=== PATIENT | male | born 1965 | race African-American/Black ===

== ENCOUNTER 2018-02-12 12:00 | Observation (INO) | payer BC ==
[~2018-02-12] VITALS: Ht 167.6 cm; Wt 68.0 kg
[2018-02-12] VITALS (9 sets, daily range): BP systolic 70–117; BP diastolic 34–83; PULSE 61–76; RESP 14–18; TEMP 97.6–99.3; O2SAT 95–100
--- NOTE | 2018-02-12 12:28 | PD ---
HPI Chief Complaint: Syncope/Near-Syncope Time Seen by Provider: 12:18 Travel History International Travel<30 days: No Contact w/Intl Traveler<30days: No Traveled to known affect area: No History of Present Illness HPI Patient is a 52 year old male presents to the ER for evaluation of abdominal pain, syncopal episode prior to arrival and diaphoresis. Per patient's he has been recovering from heroin and is visiting from out of town. She is unsure when he last used as he is not always honest with her. He states he generalized and severe abdominal pain, diarrhea and nausea. He did have one large emesis nb/nb in ED. No fevers, no chest pain, no sob. Symptoms severe, abdomen, context and associated s/s as above. [facility] Past Medical History Medical History: Denies Significant Hx Past Surgical History Surgical History: No Previous Surgery Social History Alcohol Use: Yes Tobacco Use: Yes Substance Use: Yes Allergies-Medications (Allergen,Severity, Reaction): Coded Allergies: No Known Allergies (Unverified , 02/12/18) Reported Meds & Prescriptions Reported Meds & Active Scripts Active No Active Prescriptions or Reported Medications Review of Systems Except as stated in HPI: all other systems reviewed are Neg Physical Exam Narrative GENERAL: WD/WN in moderate discomfort, rocking back and forth holding abdomen, diaphoretic. SKIN: Warm and diaphoretic. HEAD: Atraumatic. Normocephalic. EYES: Pupils equal and round. No scleral icterus. No injection or drainage. ENT: No nasal bleeding or discharge. Mucous membranes pink and moist. NECK: Trachea midline. No JVD. CARDIOVASCULAR: Regular rate and rhythm. RESPIRATORY: No accessory muscle use. Clear to auscultation. Breath sounds equal bilaterally. GASTROINTESTINAL: Abdomen soft,diffusely tender in all four quadrants. No rebound, no percussive tenderness., nondistended. Hepatic and splenic margins not palpable. MUSCULOSKELETAL: Extremities without clubbing, cyanosis, or edema. No obvious deformities. NEUROLOGICAL: Awake and alert. No obvious cranial nerve deficits. Motor grossly within normal limits. Five out of 5 muscle strength in the arms and legs. Normal speech. PSYCHIATRIC: Appropriate mood and affect; insight and judgment normal. Data Data Last Documented VS Vital Signs Date Time Temp Pulse Resp B/P (MAP) Pulse Ox O2 Delivery O2 Flow Rate FiO2 02/12/18 17:38 73 18 115/68 (84) 99 Nasal Cannula 2.00 02/12/18 12:09 97.6 Orders Orders Electrocardiogram (02/12/18 12:18) Ckmb (Isoenzyme) Profile (02/12/18 12:18) Complete Blood Count With Diff (02/12/18 12:18) Comprehensive Metabolic Panel (02/12/18 12:18) Magnesium (Mg) (02/12/18 12:18) Prothrombin Time / Inr (Pt) (02/12/18 12:18) Act Partial Throm Time (Ptt) (02/12/18 12:18) Troponin I (02/12/18 12:18) Chest, Single Ap (02/12/18 12:18) Ecg Monitoring (02/12/18 12:18) Iv Access Insert/Monitor (02/12/18 12:18) Oximetry (02/12/18 12:18) Oxygen Administration (02/12/18 12:18) Sodium Chlor 0.9% 1000 Ml Inj (Ns 1000 M (02/12/18 12:30) Sodium Chlor 0.9% 1000 Ml Inj (Ns 1000 M (02/12/18 12:30) CKMB (02/12/18 12:38) CKMB% (02/12/18 12:38) Ondansetron Odt (Zofran Odt) (02/12/18 15:00) Morphine Inj (Morphine Inj) (02/12/18 15:00) Ct Abd/Pel W Iv Contrast(Rout) (02/12/18 ) Iohexol 350 Inj (Omnipaque 350 Inj) (02/12/18 16:00) Metronidazole (Flagyl) (02/12/18 17:30) Admit Order (Ed Use Only) (02/12/18 ) Labs Laboratory Tests Test 02/12/18 12:38 White Blood Count 16.3 TH/MM3 Red Blood Count 5.27 MIL/MM3 Hemoglobin 14.6 GM/DL Hematocrit 44.9 % Mean Corpuscular Volume 85.1 FL Mean Corpuscular Hemoglobin 27.7 PG Mean Corpuscular Hemoglobin Concent 32.6 % Red Cell Distribution Width 13.8 % Platelet Count 296 TH/MM3 Mean Platelet Volume 9.2 FL Neutrophils (%) (Auto) 78.7 % Lymphocytes (%) (Auto) 15.9 % Monocytes (%) (Auto) 4.7 % Eosinophils (%) (Auto) 0.4 % Basophils (%) (Auto) 0.3 % Neutrophils # (Auto) 12.8 TH/MM3 Lymphocytes # (Auto) 2.6 TH/MM3 Monocytes # (Auto) 0.8 TH/MM3 Eosinophils # (Auto) 0.1 TH/MM3 Basophils # (Auto) 0.1 TH/MM3 CBC Comment DIFF FINAL Differential Comment Prothrombin Time 10.6 SEC Prothromb Time International Ratio 1.0 RATIO Activated Partial Thromboplast Time 19.4 SEC Blood Urea Nitrogen 13 MG/DL Creatinine 1.24 MG/DL Random Glucose 164 MG/DL Total Protein 7.7 GM/DL Albumin 4.1 GM/DL Calcium Level 9.3 MG/DL Magnesium Level 2.1 MG/DL Alkaline Phosphatase 82 U/L Aspartate Amino Transf (AST/SGOT) 36 U/L Alanine Aminotransferase (ALT/SGPT) 20 U/L Total Bilirubin 1.0 MG/DL Sodium Level 142 MEQ/L Potassium Level 3.6 MEQ/L Chloride Level 108 MEQ/L Carbon Dioxide Level 18.4 MEQ/L Anion Gap 16 MEQ/L Estimat Glomerular Filtration Rate 74 ML/MIN Total Creatine Kinase 1139 U/L Creatine Kinase MB 3.5 NG/ML Creatine Kinase MB % 0.3 % Troponin I LESS THAN 0.02 NG/ML MDM Medical Decision Making Medical Screen Exam Complete: Yes Emergency Medical Condition: Yes Differential Diagnosis Heroin withdrawal, syncope, neurogenic syncope, vasovagal syncope seems more likely, cardiac syncope, colitis dehydration, sepsis. Narrative Course Roomed in ER, initially hypotensive, responded to fluids and time. Last 24 hours Impressions Chest X-Ray 02/12/18 1218 Signed Impressions: CONCLUSION: No acute cardiopulmonary disease Abdomen/Pelvis CT 02/12/18 0000 Signed Impressions: CONCLUSION: Mural thickening of large bowel, especially distally in the sigmoid region most characteristic of a mild colitis. Labs do show elevated wbc. Discussed with patient who is feeling much better, obs versus discharge. He requests obs which i think is reasonable. D/W Dr. Lima. Diagnosis Primary Impression: Colitis Additional Impression: Syncope Admitting Information Admitting Physician Requests: Observation Med/Other Pt SpecificInfo: Prescription(s) given Scripts No Active Prescriptions or Reported Meds Disposition: DISCHARGE HOME Condition: Stable Gatito Jimenez MD Feb 12, 2018 12:28
[2018-02-12] MEDS ORDERED: SODIUM CHLOR 0.9% 1000 ML INJ 1,000 ML IV ONE ×2 (12:30)
--- NOTE | 2018-02-12 13:00 | RADRPT ---
EXAM DATE: 02/12/2018 12:41 PM EDT AGE/SEX: 52 years / Male INDICATIONS: Chest pain. CLINICAL DATA: This is the patient's initial encounter. Patient reports that signs and symptoms have been present for 1 day and indicates a pain score of 10/10. MEDICAL/SURGICAL HISTORY: None. None. COMPARISON: No prior exams available for comparison. FINDINGS: A single AP view of the chest demonstrates the lungs to be symmetrically aerated without evidence of mass, infiltrate or effusion. The cardiomediastinal contours are unremarkable. Osseous structures a re intact. CONCLUSION: No acute cardiopulmonary disease Electronically signed by: Ryan Laurent MD 02/12/2018 12:58 PM EDT
[2018-02-12 13:11] LABS: AUTOMATED NEUTROPHIL # 12.8 TH/MM3 (1.8-7.7); BASOPHIL # 0.1 TH/MM3 (0-0.2); BASOPHIL % 0.3 % (0.0-2.0); EOSINOPHIL # 0.1 TH/MM3 (0-0.4); EOSINOPHIL % 0.4 % (0.0-4.0); HEMATOCRIT 44.9 % (39.0-51.0); HEMOGLOBIN 14.6 GM/DL (13.0-17.0); LYMPH % 15.9 % (9.0-44.0); LYMPHOCYTE # 2.6 TH/MM3 (1.0-4.8); MEAN CELL VOLUME 85.1 FL (80.0-100.0); MEAN CORPUSCULAR HEMOGLOBIN 27.7 PG (27.0-34.0); MEAN CORPUSCULAR HGB CONC 32.6 % (32.0-36.0); MEAN PLATELET VOLUME 9.2 FL (7.0-11.0); MONO % 4.7 % (0.0-8.0); MONOCYTE # 0.8 TH/MM3 (0-0.9); NEUT % 78.7 % (16.0-70.0); PLATELET COUNT 296 TH/MM3 (150-450); RED BLOOD COUNT 5.27 MIL/MM3 (4.50-5.90); RED CELL DISTRIBUTION WIDTH 13.8 % (11.6-17.2); WHITE BLOOD COUNT 16.3 TH/MM3 (4.0-11.0)
[2018-02-12 13:29] LABS: ALBUMIN 4.1 GM/DL (3.4-5.0); ALT (GPT) 20 U/L (12-78); AST (GOT) 36 U/L (15-37); BICARBONATE 18.4 MEQ/L (21.0-32.0); BLOOD UREA NITROGEN 13 MG/DL (7-18); CALCIUM 9.3 MG/DL (8.5-10.1); CHLORIDE 108 MEQ/L (98-107); CREATININE 1.24 MG/DL (0.60-1.30); GLOMERULAR FILTRATION RATE 74 ML/MIN (>89); GLUCOSE,RANDOM 164 MG/DL (74-106); MAGNESIUM 2.1 MG/DL (1.5-2.5); SODIUM (NA) 142 MEQ/L (136-145)
[2018-02-12 13:33] LABS: PROTHROMBIN TIME - PATIENT 10.6 SEC (9.8-11.6)
[2018-02-12 13:43] LABS: ALKALINE PHOSPHATASE 82 U/L (45-117); TOTAL PROTEIN 7.7 GM/DL (6.4-8.2); TROPONIN I LESS THAN 0.02 NG/ML (0.02-0.05)
[2018-02-12] MEDS ORDERED: MORPHINE SULFATE 8 MG/ML INJ IV PUSH ONE (15:00)
[2018-02-12] MEDS ORDERED: ONDANSETRON ODT 4 MG TAB PO ONE (15:00)
[2018-02-12] MEDS ORDERED: IOHEXOL 350 MG/ML 10 ML VIAL (for RAD DIAG) IVCONTRAST ONE (16:00)
--- NOTE | 2018-02-12 16:29 | RADRPT ---
EXAM DATE: 02/12/2018 4:11 PM EDT AGE/SEX: 52 years / Male INDICATIONS: Diffuse abdominal pain today. CLINICAL DATA: This is the patient's initial encounter. Patient reports that signs and symptoms have been present for 1 day and indicates a pain score of 7/10. MEDICAL/SURGICAL HISTORY: None. None. ORAL CONTRAST: No oral contrast ingested. RADIATION DOSE: 6.64 CTDI (mGy) COMPARISON: No prior exams available for comparison. TECHNIQUE: Multiple contiguous axial images were obtained through the abdomen and pelvis following b olus infusion of 82 ml Omnipaque 350 (iohexol) nonionic water-soluble contrast as a single exam dos e. No oral contrast ingested. Using automated exposure control and adjustment of the mA and/or kV ac cording to patient size, radiation dose was kept as low as reasonably achievable to obtain optimal di agnostic quality images. DICOM format image data is available electronically for review and comparis on. FINDINGS: There is a 14 mm low-attenuation lesion in the right lobe of the abdomen and multiple additional subc entimeter low-attenuation lesion numbering at least 7. These are probably small cysts. Spleen, adrena ls, kidneys and pancreas are unremarkable. No calcified gallstones or biliary ductal dilatation.. There is mural thickening of the large bowel predominantly in the left colon and in the sigmoid regio n most characteristic of a mild colitis. No acute bony abnormalities. Minimal anterolisthesis of L4 on L5. CONCLUSION: Mural thickening of large bowel, especially distally in the sigmoid region most characteristic of a m ild colitis. Electronically signed by: Blake Barlow MD 02/12/2018 4:28 PM EDT
[2018-02-12] MEDS ORDERED: metroNIDAZOLE 500 MG TAB PO ONE (17:30)
[2018-02-12] MEDS ORDERED: ACETAMINOPHEN/HYDROcodone 325 MG/5 MG TAB PO PRN (18:15)
[2018-02-12] MEDS ORDERED: SODIUM CHLORIDE 0.9% FLUSH 10 ML FLUSH IV FLUSH PRN (18:15)
[2018-02-12] MEDS ORDERED: NALOXONE HCL 0.4 MG/ML AMP IV PUSH PRN (18:15)
[2018-02-12] MEDS ORDERED: MORPHINE SULFATE 4 MG/ML INJ IV PUSH PRN (18:15)
[2018-02-12] MEDS ORDERED: ONDANSETRON ODT 4 MG TAB PO PRN (18:15)
[2018-02-12] MEDS ORDERED: ACETAMINOPHEN 325 MG TAB PO PRN ×2 (18:15)
--- NOTE | 2018-02-12 19:01 | HHI.HP ---
[facility] Unknown Admission Diagnosis Syncope, Colitis, Heroin Withdrawal. Diagnoses: Chief Complaint: Syncope Travel History International Travel<30 Days: No Contact w/Intl Traveler <30 Da: No Traveled to Known Affected Are: No History of Present Illness This is a 52-year-old male who presented to the emergency department after a syncopal episode. Patient was seen [facility] when he developed abdominal pain and then passed out for a brief period of time. States he slid down and landed on his knees denies injuries. No chest pain, shortness of breath, palpitations, dizziness and neck pain. He reports of progressive intermittent sharp left lower quadrant pain associated with diarrhea since yesterday. Denies recent travel, sick contacts, well water and seafood ingestion. In the emergency department, he was hypotensive systolic in the 80s and received 2 L fluid bolus. Abdominal CT shows mural thickening of the large bowel especially distally in the sigmoid region characteristic of mild colitis. Patient denies recent antibiotic use. No history of C. difficile. All other systems reviewed negative Review of Systems Except as stated in HPI: all other systems reviewed are Neg Past Family Social History Past Medical History Denies any medical conditions. States he is trying to quit heroin last used 3 days ago Past Surgical History Denies Reported Medications None Allergies: Coded Allergies: No Known Allergies (Unverified , 02/12/18) Family History Noncontributory Social History Smoke A pack per day. Does not drink Physical Exam Vital Signs Vital Signs Date Time Temp Pulse Resp B/P (MAP) Pulse Ox O2 Delivery O2 Flow Rate FiO2 02/12/18 17:38 73 18 115/68 (84) 99 Nasal Cannula 2.00 02/12/18 14:35 76 18 117/83 (94) 100 Room Air 02/12/18 13:28 74 18 117/65 (82) 100 Room Air 02/12/18 12:32 36 98 Nasal Cannula 2.00 02/12/18 12:32 68 18 109/55 (73) 100 Nasal Cannula 2.00 02/12/18 12:31 100 Nasal Cannula 2.00 02/12/18 12:31 18 100 Nasal Cannula 2.00 02/12/18 12:09 97.6 73 14 70/34 (46) 97 80/40 (53) Physical Exam GENERAL: This is a well-nourished, well-developed patient, in no apparent distress. Looks dehydrated SKIN: No rashes, ecchymoses or lesions. Cool and dry. HEAD: Atraumatic. Normocephalic. No temporal or scalp tenderness. EYES: Pupils equal round and reactive. Extraocular motions intact. No scleral icterus. No injection or drainage. ENT: Nose without bleeding, purulent drainage or septal hematoma. Throat without erythema, tonsillar hypertrophy or exudate. Uvula midline. Airway patent. NECK: Trachea midline. No JVD or lymphadenopathy. Supple, nontender, no meningeal signs. CARDIOVASCULAR: Regular rate and rhythm without murmurs, gallops, or rubs. RESPIRATORY: Clear to auscultation. Breath sounds equal bilaterally. No wheezes , rales, or rhonchi. GASTROINTESTINAL: Abdomen soft, non-tender, nondistended. No guarding. MUSCULOSKELETAL: Extremities without clubbing, cyanosis, or edema. No joint tenderness, effusion, or edema noted. No calf tenderness. Negative Homans sign bilaterally. NEUROLOGICAL: Awake and alert. Cranial nerves II through XII intact. Motor and sensory grossly within normal limits. Five out of 5 muscle strength in all muscle groups. Normal speech. Laboratory Laboratory Tests Test 02/12/18 12:38 White Blood Count 16.3 Red Blood Count 5.27 Hemoglobin 14.6 Hematocrit 44.9 Mean Corpuscular Volume 85.1 Mean Corpuscular Hemoglobin 27.7 Mean Corpuscular Hemoglobin Concent 32.6 Red Cell Distribution Width 13.8 Platelet Count 296 Mean Platelet Volume 9.2 Neutrophils (%) (Auto) 78.7 Lymphocytes (%) (Auto) 15.9 Monocytes (%) (Auto) 4.7 Eosinophils (%) (Auto) 0.4 Basophils (%) (Auto) 0.3 Neutrophils # (Auto) 12.8 Lymphocytes # (Auto) 2.6 Monocytes # (Auto) 0.8 Eosinophils # (Auto) 0.1 Basophils # (Auto) 0.1 CBC Comment DIFF FINAL Differential Comment Prothrombin Time 10.6 Prothromb Time International Ratio 1.0 Activated Partial Thromboplast Time 19.4 Blood Urea Nitrogen 13 Creatinine 1.24 Random Glucose 164 Total Protein 7.7 Albumin 4.1 Calcium Level 9.3 Magnesium Level 2.1 Alkaline Phosphatase 82 Aspartate Amino Transf (AST/SGOT) 36 Alanine Aminotransferase (ALT/SGPT) 20 Total Bilirubin 1.0 Sodium Level 142 Potassium Level 3.6 Chloride Level 108 Carbon Dioxide Level 18.4 Anion Gap 16 Estimat Glomerular Filtration Rate 74 Total Creatine Kinase 1139 Creatine Kinase MB 3.5 Creatine Kinase MB % 0.3 Troponin I LESS THAN 0.02 Result Diagram: 02/12/18 1238 02/12/18 1238 Imaging Last Impressions Chest X-Ray 02/12/18 1218 Signed Impressions: CONCLUSION: No acute cardiopulmonary disease Abdomen/Pelvis CT 02/12/18 0000 Signed Impressions: CONCLUSION: Mural thickening of large bowel, especially distally in the sigmoid region most characteristic of a mild colitis. Caprini VTE Risk Assessment Caprini VTE Risk Assessment: No/Low Risk (score <= 1) Caprini Risk Assessment Model Point Value = 1 Point Value = 2 Point Value = 3 Point Value = 5 Age 41-60 Minor surgery BMI > 25 kg/m2 Swollen legs Varicose veins or History of unexplained or recurrent spontaneous Oral contraceptives or hormone replacement Sepsis (< 1 month) Serious lung disease, including pneumonia (< 1 month) Abnormal pulmonary function Acute myocardial infarction Congestive heart failure (< 1 month) History of inflammatory bowel disease Medical patient at bed rest Age 61-74 Arthroscopic surgery Major open surgery (> 45 min) Laparoscopic surgery (> 45 min) Malignancy Confined to bed (> 72 hours) Immobilizing plaster cast Central venous access Age >= 75 History of VTE Family history of VTE Factor V Leiden Prothrombin [id number] Lupus anticoagulant Anticardiolipin antibodies Elevated serum homocysteine Heparin-induced thrombocytopenia Other congenital or acquired thrombophilia Stroke (< 1 month) Elective arthroplasty Hip, pelvis, or leg fracture Acute spinal cord injury (< 1 month) Prophylaxis Regimen Total Risk Factor Score Risk Level Prophylaxis Regimen 0-1 Low Early ambulation 2 Moderate Order ONE of the following: *Sequential Compression Device (SCD) *Heparin 5000 units SQ BID 3-4 Higher Order ONE of the following medications: *Heparin 5000 units SQ TID *Enoxaparin/Lovenox 40 mg SQ daily (WT < 150 kg, CrCl > 30 mL/min) *Enoxaparin/Lovenox 30 mg SQ daily (WT < 150 kg, CrCl > 10-29 mL/min) *Enoxaparin/Lovenox 30 mg SQ BID (WT < 150 kg, CrCl > 30 mL/min) AND/OR *Sequential Compression Device (SCD) 5 or more Highest Order ONE of the following medications: *Heparin 5000 units SQ TID (Preferred with Epidurals) *Enoxaparin/Lovenox 40 mg SQ daily (WT < 150 kg, CrCl > 30 mL/min) *Enoxaparin/Lovenox 30 mg SQ daily (WT < 150 kg, CrCl > 10-29 mL/min) *Enoxaparin/Lovenox 30 mg SQ BID (WT < 150 kg, CrCl > 30 mL/min) AND *Sequential Compression Device (SCD) Assessment and Plan Assessment and Plan This is a 52-year-old male who presented to the emergency department after a syncopal episode. Patient was seen [facility] when he developed abdominal pain and then passed out for a brief period of time. States he slid down and landed on his knees denies injuries. No chest pain, shortness of breath, palpitations, dizziness and neck pain. He reports of progressive intermittent sharp left lower quadrant pain associated with diarrhea for 2 days. Denies recent travel, sick contacts, well water and seafood ingestion. In the emergency department, he was hypotensive systolic in the 80s and received 2 L fluid bolus. Abdominal CT shows mural thickening of the large bowel especially distally in the sigmoid region characteristic of mild colitis. Patient denies recent antibiotic use. No history of C. difficile. Acute colitis. Continue IV hydration, IV Flagyl and pain management with Lortab and IV morphine. Counseled regarding narcotics. Obtain C. difficile and stool culture Acidosis secondary to dehydration from above. Patient was hypotensive with systolic in the 80s received 2 L fluid bolus in the ED. He is hemodynamically improved. Continue IV hydration Syncope secondary to above. Nonfocal. Neurochecks Rhabdomyolysis, mild. Continue IV hydration. Repeat CK in the morning Heroin abuse. Counseled DVt prophylaxis with SCD Discussed Condition With pt Jose Lima MD Feb 12, 2018 19:01
[2018-02-12] MEDS: SODIUM CHLORIDE 0.9% FLUSH 10 ML FLUSH IV FLUSH SCH (23:25)
[2018-02-12] MEDS: metroNIDAZOLE 500 MG INJ 100 ML IV SCH (23:25)
[2018-02-12] MEDS: SODIUM CHLOR 0.9% 1000 ML INJ 1,000 ML IV SCH (23:31)
[2018-02-13] MEDS: SODIUM CHLOR 0.9% 1000 ML INJ 1,000 ML IV SCH ×2 (03:19→14:03)
[2018-02-13 03:51] VITALS: BP 105/55; PULSE 73; RESP 16; TEMP 99.1; O2SAT 99
[2018-02-13] MEDS: metroNIDAZOLE 500 MG INJ 100 ML IV SCH ×2 (05:30→11:39)
[2018-02-13 06:16] VITALS: BP 114/59; PULSE 73; RESP 16; O2SAT 100
[2018-02-13] MEDS ORDERED: LORazepam 2 MG/ML VIAL IV PUSH PRN (06:30)
[2018-02-13 06:59] VITALS: O2SAT 100
[2018-02-13 07:30] VITALS: BP 91/56; PULSE 69; RESP 18; TEMP 99.2; O2SAT 97
[2018-02-13 08:01] LABS: AUTOMATED NEUTROPHIL # 13.1 TH/MM3 (1.8-7.7); BASOPHIL # 0.1 TH/MM3 (0-0.2); BASOPHIL % 0.4 % (0.0-2.0); EOSINOPHIL % 0.3 % (0.0-4.0); HEMATOCRIT 38.2 % (39.0-51.0); HEMOGLOBIN 12.5 GM/DL (13.0-17.0); LYMPHOCYTE # 1.6 TH/MM3 (1.0-4.8); MEAN CELL VOLUME 84.4 FL (80.0-100.0); MEAN CORPUSCULAR HEMOGLOBIN 27.5 PG (27.0-34.0); MEAN CORPUSCULAR HGB CONC 32.6 % (32.0-36.0); MEAN PLATELET VOLUME 9.4 FL (7.0-11.0); MONO % 5.8 % (0.0-8.0); MONOCYTE # 0.9 TH/MM3 (0-0.9); NEUT % 83.5 % (16.0-70.0); PLATELET COUNT 241 TH/MM3 (150-450); RED BLOOD COUNT 4.53 MIL/MM3 (4.50-5.90); RED CELL DISTRIBUTION WIDTH 13.6 % (11.6-17.2); WHITE BLOOD COUNT 15.7 TH/MM3 (4.0-11.0)
--- NOTE | 2018-02-13 08:06 | HHI.PR ---
Subjective Remarks Patient seen and examined for follow-up of colitis. He reports his abdominal pain has improved significantly but he is head still operator mostly in his left lower quadrant. He has had four episodes of nonbloody diarrhea so far today. Denies nausea or vomiting. Tolerating liquids. He reports he passed out in the parking lot prior to coming in because his abdominal pain was so severe. He denies ever passing out in the past. He denies chest pain, palpitations, or dizziness. He states he does not feel like he is withdrawing any longer. She admits to snorting heroin "all day every day" for the last 8 months but wants to be sober. He has not used in the last three days. He states he is gone to rehab in the past. He denies history of seizures or significant withdrawal symptoms. He has the support of his family. He lives with his and daughter and her traveling back to [place] and are scheduled to fly out first thing in the morning. The patient feels like he is ready to go. He states he has a primary care physician in [place] and was already in the works of setting up an appointment for colonoscopy. Objective Vital Signs Date Time Temp Pulse Resp B/P (MAP) Pulse Ox O2 Delivery O2 Flow Rate FiO2 02/13/18 07:30 99.2 69 18 91/56 (68) 97 02/13/18 06:59 100 Nasal Cannula 2.00 02/13/18 06:16 73 16 114/59 (77) 100 02/13/18 03:51 99.1 73 16 105/55 (72) 99 02/12/18 23:22 99.3 61 16 103/56 (72) 98 02/12/18 20:37 98.9 72 16 103/66 (78) 95 02/12/18 19:25 98 Nasal Cannula 2.00 02/12/18 19:18 02/12/18 17:38 73 18 115/68 (84) 99 Nasal Cannula 2.00 02/12/18 14:35 76 18 117/83 (94) 100 Room Air 02/12/18 13:28 74 18 117/65 (82) 100 Room Air 02/12/18 12:32 36 98 Nasal Cannula 2.00 02/12/18 12:32 68 18 109/55 (73) 100 Nasal Cannula 2.00 02/12/18 12:31 100 Nasal Cannula 2.00 02/12/18 12:31 18 100 Nasal Cannula 2.00 02/12/18 12:09 97.6 73 14 70/34 (46) 97 80/40 (53) I/O 02/12/18 02/12/18 02/12/18 02/13/18 02/13/18 02/13/18 07:00 15:00 23:00 07:00 15:00 23:00 Intake Total 2000 ml Balance 2000 ml Intake IV Total 2000 ml Result Diagram: 02/12/18 1238 02/12/18 1238 Objective Remarks GENERAL: WN, WD -[place] male resting in bed in NAD. Not tremulous or diaphoretic. SKIN: Warm and dry. HEENT: AT/NC. Pupils equal and round. MMM. NECK: Supple no tender LAD or JVD. HEART: RRR no m/r/g. LUNGS: CTAB without wheezes or crackles. ABDOMEN: +BS, soft, ND, mild diffuse TTP especially over LLQ. EXTREMITIES: No LE edema. NEURO: Awake and alert. Nonfocal. PSYCH: Appropriate mood and affect. A/P Problem List: (1) Colitis ICD Code: K52.9 - Noninfective gastroenteritis and colitis, unspecified Status: Acute (2) Syncope ICD Code: R55 - Syncope and collapse Status: Acute Assessment and Plan 52 YOAAM with history of heroin use admitted yesterday for abdominal pain, diarrhea, and syncope and found to have colitis. 1. Colitis - Pt with LLQ abdominal pain and diarrhea - Hypotensive on admission requiring fluid bolus - White count elevated at 16.3 - LFTs WNL - Elevated anion gap of 16, acidotic likely from bicarb loss in the diarrhea - Lactic acid WNL - C DIFF PCR negative - CT A/P showing mural thickening of the large bowel predominantly in the left colon in the sigmoid region most characteristic of a mild colitis - Started on IV Flagyl overnight - Add Cipro PO - IV hydration - Pain control 2. Syncope - Likely vasovagal secondary to severe abdominal pain - EKG showing borderline prolonged QTc for a male. Recheck EKG - Avoid QT prolonging agents - Troponin negative - Check 2D echo 3. Rhabdomyolysis - CK elevated - IV hydration - Repeat CK normal 4. Heroin abuse - Counseled on cessation - Does not appear to be withdrawing at this time but will monitor closely DVT prophylaxis: Discharge Planning Possibly tomorrow pending clinical improvement, ordering an echo today Devika Melgar MD Feb 13, 2018 08:06
[2018-02-13 08:23] LABS: BICARBONATE 20.7 MEQ/L (21.0-32.0); CALCIUM 8.3 MG/DL (8.5-10.1); CREATININE 0.84 MG/DL (0.60-1.30)
[2018-02-13] MEDS ORDERED: CIPROFLOXACIN 500 MG TAB PO SCH (09:00)
[2018-02-13] MEDS: LACTOBACILLUS ACIDOPHILUS TAB PO SCH ×2 (09:26→14:38)
[2018-02-13] MEDS: SODIUM CHLORIDE 0.9% FLUSH 10 ML FLUSH IV FLUSH SCH (09:27)
[2018-02-13 11:08] VITALS: BP 98/57; PULSE 68; RESP 18; TEMP 99.4; O2SAT 98
[2018-02-13] MEDS ORDERED: POTASSIUM CHLORIDE 20 MEQ CONTROLLED RELEASE TAB PO ONE (13:00)
--- NOTE | 2018-02-13 13:51 | EKG ---
Date Performed: 02/12/2018 Time Performed: 12:23:36 PTAGE: 52 years EKG: Sinus rhythm PROLONGED QT INTERVAL ABNORMAL ECG INTERPRETATION BASED ON A DEFAULT AGE OF 40 YEARS NO PREVIOUS TRACING DOCTOR: Williams Cuevas Interpretating Date/Time 02/13/2018 13:50:01
[2018-02-13 15:35] VITALS: BP 107/58; PULSE 65; RESP 18; TEMP 98.9; O2SAT 98
--- NOTE | 2018-02-14 23:19 | EKG ---
Date Performed: 02/13/2018 Time Performed: 16:02:36 PTAGE: 52 years EKG: Sinus rhythm NORMAL ECG PREVIOUS TRACING : 02/13/2018 15.53 Compared to previous tracing, QTc less prolonged DOCTOR: Bipin Quinteros Interpretating Date/Time 02/14/2018 23:19:22
== END 2018-02-13 16:57 | disposition left against medical advice (07) ==
LOC: NEPE 12:00 → NEDA 18:04 → NEPGCP 19:22
PROVIDERS: ADMIT Family Medicine; ATTEND Family Medicine
DX: R55 Syncope and collapse (principal); R10.9 Unspecified abdominal pain; K52.9 Noninfective gastroenteritis and colitis, unspecified; R61 Generalized hyperhidrosis; R11.0 Nausea; R11.10 Vomiting, unspecified; F17.210 Nicotine dependence, cigarettes, uncomplicated; I95.9 Hypotension, unspecified; D72.829 Elevated white blood cell count, unspecified; E87.2 Acidosis; E86.0 Dehydration; M62.82 Rhabdomyolysis; R94.31 Abnormal electrocardiogram [ECG] [EKG]; F11.20 Opioid dependence, uncomplicated
CPT/HCPCS: 71045; 74177; 80048; 80053; 82550; 82552; 83605; 83735; 84484; 85025; 85610; 85730; 87493; 93005; 96361; 96365; 96366; 96375; 97162; 99285; G0378; G8987; G8988; J2060; J2270; J7030; Q9967